=== PATIENT | female | born 1940 | race Caucasian/White ===

== ENCOUNTER → 2017-02-26 | Day surgery (SDC) | payer OTHER ==
[2017-02-11 12:34] VITALS: BMI 28.0
[~2017-02-26] VITALS: Ht 152.4 cm; Wt 65.9 kg
[~2017-02-26] MED LIST: ASPCH81X PO; B-COTAB18 PO; BIOT1CAP8 PO; CALC1TAB9 PO; CHOL1000 PO; CYAN100028 PO; DEXL60CA4 PO; FEXO1TAB49 PO; GARL10007 PO; HYDR50TA3 PO; LEVO25TA PO; LIDOCAINE HCL 2% 2 ML VIAL (20MG/ML) ONE; MELO15TA10 PO; MIDAZOLAM HCL 1 MG/ML 2ML VIAL ONE; MONT1TAB5 PO; NIAC500T11 PO; OMEGCAP2 PO; ONDANSETRON INJ 2 MG/ML 2 ML VIAL ONE; PROPOFOL IV EMULSION 10 MG/ML 20 ML VIAL IV ONE; SERT25TA PO; SODIUM CHLORIDE 0.9% 500ML 500 ML IV ONE; TELM80TA PO; VITA400C3 PO
[2017-02-26 14:23] VITALS: Ht 152.4 cm; Wt 65.9 kg
--- NOTE | 2017-02-26 15:30 | Endo History and Physical ---
History & Physical Date of Service: February 26, 2017. Chief Complaint: HEDRICK'S ESOPHAGUS Referring Physician: DR. 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 Past Surgical History Hx Cardiac Surgery: No Hx Internal Defibrillator: No Hx Pacemaker: No Hx Abdominal Surgery: No Hx of Implantable Prosthesis: No Hx Post-Op Nausea and Vomiting: No Hx Cancer Surgery: No Hx Thoracic Surgery: No Hx Orthopedic: Yes (LEFT FOOT BUNIONECTOMY, LEFT/RT PELON) Hx Urinary Tract Surgery: No Family History None Social History Smoking Status: Never Smoker Hx Substance Use: No Hx Alcohol Use: Yes (GLASS OF WINE OCCASIONALLY) Allergies Coded Allergies: No Known Allergies (Verified , 02/26/17) Current Medications Reported Home Medications Medications Dose Route/Sig Max Daily Dose Days Date Category Vitamin B12 Tr (Cyanocobalamin) 1,000 Mcg Tab 5,000 Mcg PO QAM 02/11/17 Reported Biotin 1 Mg Cap 1 Cap PO QAM 02/11/17 Reported Vitamin B Complex (B-Complex Vitamins) 1 Tab Tab 1 Tab PO QAM 02/11/17 Reported Vitamin E 400 Iu (Vitamin E) 400 Unit Cap 400 Inter.unit PO QAM 02/11/17 Reported Garlic 1,000 Mg Cap 1 Cap PO QAM 02/11/17 Reported Fish Oil ([place]-3 Fatty Acids) 1 Cap Cap 1 Cap PO QAM 02/11/17 Reported Citracal + D3 Maximum (Calcium Citrate-Vitamin D) 1 Tab Tab 1 Tab PO QAM 02/11/17 Reported Niacin 500 Mg Tab 500 Mg PO QAM 02/11/17 Reported Vitamin D3 (Cholecalciferol) 1,000 Unit Tab 1 Tab PO QAM 90 02/11/17 Reported [place]ie Allergy (Fexofenadine Hcl) 180 Mg Tab 1 Tab PO QAM 14 02/11/17 Reported Montelukast Sodium 10 Mg Tab 1 Tab PO QAM 90 02/11/17 Reported Micardis (Telmisartan) 80 Mg Tab 80 Mg PO QAM 02/11/17 Reported Mobic (Meloxicam) 15 Mg Tab 15 Mg PO QAM 02/11/17 Reported Hctz (Hydrochlorothiazide) 50 Mg Tab 75 Mg PO QPM 02/11/17 Reported Zoloft (Sertraline HCl) 25 Mg Tab 25 Mg PO QAM 02/11/17 Reported Aspirin Chewable (Aspirin) 81 Mg Chew 81 Mg PO HS 02/11/17 Reported Synthroid (Levothyroxine Sodium) 25 Mcg Tab 25 Mcg PO QAM 02/11/17 Reported Dexilant (Dexlansoprazole) 60 Mg Cap 60 Mg PO QAM 10/26/13 Reported Vital Signs Weight (Kilograms): 65.91 Height (Feet): 5 Height (Inches): 0 Date Time Temp Pulse Resp B/P Pulse Ox O2 Delivery O2 Flow Rate FiO2 02/26/17 14:34 36.6 56 18 151/76 98 Room Air Physical Exam General Appearance: WD/WN, no apparent distress Respiratory/Chest: Auscultation: breath sounds normal Cardiovascular: Heart Auscultation: RRR Abdomen: Bowel Sounds: normal Inspection & Palpation: soft, non-distended, no tenderness, guarding & rebound Assessment and Plan Assessment: 76 yo CF who presents for 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 Plan: Proceed with EGD.
--- NOTE | 2017-02-26 15:40 | Discharge Instructions ---
Endoscopy Patient Instructions Date / Procedure(s) Performed February 26, 2017. EGD Allergy Information Coded Allergies: No Known Allergies (Verified , 02/26/17) Discharge Date / Findings February 26, 2017. Daniels's Esophagus s/p biopsies Hiatal hernia Medication Instructions OK to resume all medications today as prescribed Reported Home Medications Medications Dose Route/Sig Max Daily Dose Days Date Category Vitamin B12 Tr (Cyanocobalamin) 1,000 Mcg Tab 5,000 Mcg PO QAM 02/11/17 Reported Biotin 1 Mg Cap 1 Cap PO QAM 02/11/17 Reported Vitamin B Complex (B-Complex Vitamins) 1 Tab Tab 1 Tab PO QAM 02/11/17 Reported Vitamin E 400 Iu (Vitamin E) 400 Unit Cap 400 Inter.unit PO QAM 02/11/17 Reported Garlic 1,000 Mg Cap 1 Cap PO QAM 02/11/17 Reported Fish Oil ([place]-3 Fatty Acids) 1 Cap Cap 1 Cap PO QAM 02/11/17 Reported Citracal + D3 Maximum (Calcium Citrate-Vitamin D) 1 Tab Tab 1 Tab PO QAM 02/11/17 Reported Niacin 500 Mg Tab 500 Mg PO QAM 02/11/17 Reported Vitamin D3 (Cholecalciferol) 1,000 Unit Tab 1 Tab PO QAM 90 02/11/17 Reported Cookie Allergy (Fexofenadine Hcl) 180 Mg Tab 1 Tab PO QAM 14 02/11/17 Reported Montelukast Sodium 10 Mg Tab 1 Tab PO QAM 90 02/11/17 Reported Micardis (Telmisartan) 80 Mg Tab 80 Mg PO QAM 02/11/17 Reported Mobic (Meloxicam) 15 Mg Tab 15 Mg PO QAM 02/11/17 Reported Hctz (Hydrochlorothiazide) 50 Mg Tab 75 Mg PO QPM 02/11/17 Reported Zoloft (Sertraline HCl) 25 Mg Tab 25 Mg PO QAM 02/11/17 Reported Aspirin Chewable (Aspirin) 81 Mg Chew 81 Mg PO HS 02/11/17 Reported Synthroid (Levothyroxine Sodium) 25 Mcg Tab 25 Mcg PO QAM 02/11/17 Reported Dexilant (Dexlansoprazole) 60 Mg Cap 60 Mg PO QAM 10/26/13 Reported Provider Instructions Activity Restrictions - No exercising or heavy lifting for 24 hours. - Do not drink alcohol the day of the procedure. - Do not drive a car or operate machinery until the day after the procedure. - Do not make any important decisions or sign important papers in 24 hours after the procedure. Following Day: - Return to full activity which may include returning to work/school. Diet Start your diet with liquids and light foods (jello, soup, juice, toast). Then eat your usual diet if not nauseated. Treatment For Common After Affects For mild abdominal pain, bloating, or excessive gas: - Rest - Eat lightly - Lie on right side Follow-Up Information Follow-up with DR. JAMES FOX as scheduled Anesthesia Information What You Should Know You have had a procedure that required some medicine to reduce anxiety and discomfort. This treatment is called moderate sedation. After receiving the treatment, you may be sleepy, but you will be able to breathe on your own. The effects of the treatment may last for several hours. Follow these instructions along with Activity/Diet recommendations noted above: * Do NOT do anything where dizziness or clumsiness would be dangerous. * Rest quietly at home today, then you can be up and about tomorrow. * Have a responsible person stay with you the rest of today. * You may have had an I.V. today. If so, you may take the dressing off later today. Recommendations Call your doctor if: * Trouble breathing * Continuous vomiting for more than 24 hours * Temperature above 101 degrees * Severe abdominal pain or bloating * Pain not relieved by pain medicine ordered * There is increased drainage or redness from any incision * A large amount of rectal bleeding greater than 2-3 tablespoons. (If you had a polyp/s removed or have hemorrhoids, a small amount of blood - from the rectum is to be expected.) * You have any unanswered questions or concerns. IN THE EVENT OF A SERIOUS EMERGENCY, GO TO THE NEAREST EMERGENCY ROOM Your discharge instructions were prepared by provider Onesimo Lujan. Patient Instructions Signature Page Suzette Rodriguez Patient (or Guardian) Signature/Date: I have read and understand the instructions given to me by my caregivers. Caregiver/RN/Doctor Signature/Date: The above-named patient and/or guardian has received patient instructions on this date. + Original Patient Signature Page (only) stays with chart. Please make copy for patient.
--- NOTE | 2017-02-26 15:45 | GI REPORT ---
Procedure Date: 02/26/2017 3:08 PM Procedure: Upper GI endoscopy Indications: Follow-up of Daniels's esophagus Medicines: Monitored Anesthesia Care Complications: No immediate complications. Estimated Blood Loss: Estimated blood loss: none. Procedure: Pre-Anesthesia Assessment: - Prior to the procedure, a History and Physical was performed, and patient medications and allergies were reviewed. The patient's tolerance of previous anesthesia was also reviewed. The risks and benefits of the procedure and the sedation options and risks were discussed with the patient. All questions were answered, and informed consent was obtained. Prior Anticoagulants: The patient has taken no previous anticoagulant or antiplatelet agents. ASA Grade Assessment: III - A patient with severe systemic disease. After reviewing the risks and benefits, the patient was deemed in satisfactory condition to undergo the procedure. After obtaining informed consent, the endoscope was passed under direct vision. Throughout the procedure, the patient's blood pressure, pulse, and oxygen saturations were monitored continuously. The scope was introduced through the mouth, and advanced to the second part of duodenum. The upper GI endoscopy was accomplished without difficulty. The patient tolerated the procedure well. Findings: There were esophageal mucosal changes consistent with short-segment Daniels's esophagus present at the gastroesophageal junction. The maximum longitudinal extent of these mucosal changes was 1 cm in length. Mucosa was biopsied with a cold forceps for histology. One specimen bottle was sent to pathology. A small hiatus hernia was present. The examined duodenum was normal. Impression: - Esophageal mucosal changes consistent with short-segment Daniels's esophagus. Biopsied. - Small hiatus hernia. - Normal examined duodenum. Recommendation: - Resume previous diet. - Continue present medications. - Await pathology results. - Return to GI office as previously scheduled. Onesimo Lujan DO 02/26/2017 3:45:18 PM This report has been signed electronically. Note Initiated On: 02/26/2017 3:08 PM I attest to the content of the Intraoperative Record and orders documented therein, exceptions below
--- NOTE | 2017-02-26 15:53 | Anesthesiology Progress Note ---
Anesthesia Post Op Note Date & Time February 26, 2017 at 15:53 Vital Signs Pain Intensity: 0 Vital Signs Past 12 Hours Date Time Temp Pulse Resp B/P Pulse Ox O2 Delivery O2 Flow Rate FiO2 02/26/17 15:51 55 16 120/66 98 Room Air 02/26/17 15:43 54 16 90/54 96 Room Air 02/26/17 14:34 36.6 56 18 151/76 98 Room Air Notes Mental Status: alert / awake / arousable, participated in evaluation Pt Amnestic to Procedure: Yes Nausea / Vomiting: adequately controlled Pain: adequately controlled Airway Patency, RR, SpO2: stable & adequate BP & HR: stable & adequate Hydration State: stable & adequate Anesthetic Complications: no major complications apparent Pt doing very well.
[2017-02-26 16:13] VITALS: BP 148/79; PULSE 55; O2SAT 97
== END | disposition home or self-care (01) ==
LOC: C.GI 13:24
PROVIDERS: ATTEND Internal Medicine
DX: K22.70 Barrett's esophagus without dysplasia (principal); K44.9 Diaphragmatic hernia without obstruction or gangrene; Z79.82 Long term (current) use of aspirin; Z79.899 Other long term (current) drug therapy